=== PATIENT | male | born 1945 | race Two or more races ===

== ENCOUNTER 2018-11-12 01:47 | Emergency (ER) | payer SELFPAY ==
[~2018-11-12] VITALS: Ht 177.8 cm; Wt 75.3 kg
[2018-11-12 04:43] VITALS: BP 164/83
== END 2018-11-12 02:10 | disposition left against medical advice (07) ==
LOC: ER 01:47
DX: Z03.89 Encounter for observation for other suspected diseases and conditions ruled out (principal)